=== PATIENT | female | born 1955 | race Caucasian/White ===

== ENCOUNTER 2018-11-09 07:23 | Emergency (ER) | payer MEDICARE ==
[~2018-11-09] VITALS: Ht 152.4 cm; Wt 63.6 kg
[2018-11-09 07:28] VITALS: Ht 152.4 cm; Wt 63.6 kg
[2018-11-09] MEDS ORDERED: SYNTHROID25 MCG PO (07:50)
[2018-11-09] MEDS ORDERED: ZOCOR20 MG PO (07:50)
[2018-11-09] MEDS ORDERED: PLAVIX75 MG PO (07:50)
[2018-11-09] MEDS ORDERED: VITAMIN B-121000 MCG PO (07:51)
[2018-11-09] MEDS ORDERED: CELEXA40 MG PO (07:51)
[2018-11-09] MEDS ORDERED: MELATONIN10 M1 PO (07:51)
[2018-11-09] MEDS ORDERED: OMEPRAZOLE40 MG PO (07:51)
[2018-11-09] MEDS ORDERED: LOPRESSOR25 MG PO (07:53)
[2018-11-09 07:59] LABS: BASOPHILS 0.3 % (0-2); EOSINOPHILS 6.2 % (0-7); HEMATOCRIT 37.8 % (36.0-48.0); HEMOGLOBIN 12.4 g/dL (12-16); IMMATURE GRANULOCYTES 0.8 % (0-5); MCH 30.8 pg (26.0-34.0); MCHC 32.8 g/dL (31.0-37.0); MCV 93.8 fL (80.0-100.0); MEAN PLATELET VOLUME 9.1 fL (7.4-10.4); MONOCYTES 9.9 % (2-11); NEUTROPHILS 51.8 % (40-80); PLATELET COUNT 364 10x3/uL (130-400); RBC 4.03 10x6/uL (4.00-5.40); RDW 14.9 % (11.5-14.5)
[2018-11-09 08:11] LABS: ALBUMIN 2.8 g/dL (3.4-5.0); ANION GAP 9.7 mmol/L (8-16); BILIRUBIN - TOTAL 0.25 mg/dL (0.2-1.3); CALCIUM 8.3 mg/dL (8.5-10.1); CREATININE - SERUM 1.1 mg/dL (0.6-1.3); POTASSIUM - SERUM 3.7 mmol/L (3.5-5.1); PROTEIN - SERUM 5.9 g/dL (6.4-8.2)
[2018-11-09] MEDS ORDERED: HYDROCODON-ACE1 EAC2 PO (11:37)
[2018-11-09 13:22] VITALS: BP 172/79
== END 2018-11-09 14:40 | disposition home or self-care (01) ==
LOC: D.ER 07:23
PROVIDERS: Family Medicine
DX: S46.911A Strain of unspecified muscle, fascia and tendon at shoulder and upper arm level, right arm, initial encounter (principal); X58.XXXA Exposure to other specified factors, initial encounter; Z90.5 Acquired absence of kidney